=== PATIENT | male | born 1940 | race American Indian/Alaskan Native ===

== ENCOUNTER 2018-01-27 13:21 | Outpatient (CLI) | payer BC ==
--- NOTE | 2018-02-04 14:48 | Vascular Lab Report ---
CAROTID DUPLEX STUDY: RIGHT PSVEDV CCA PROX:[id number] CCA DIST:[id number] ICA PROX:[id number] ICA MID:[id number] ICA DIST:[id number] ECA: 1448 VERT: 63 14 LEFT PSVEDV CCA PROX:[id number] CCA DIST:[id number] ICA PROX:6714 ICA MID:8025 ICA DIST:8224 ECA: 1024 VERT: 59 10 REASON FOR EXAM: Carotid artery stenosis. COMMENTS ON THE RIGHT: Doppler frequency analysis is consistent with 16 to 49 percent diameter reduction of the internal carotid artery. A small amount of irregular surfaced plaque is seen. The common carotid artery is patent. The external carotid artery is patent. The vertebral artery has antegrade flow. COMMENTS ON THE LEFT: Doppler frequency analysis is consistent with 16 to 49 percent diameter reduction of the internal carotid artery. A small amount of plaque is seen. The common carotid artery is patent. The external carotid artery is patent. The vertebral artery has antegrade flow. IMPRESSION: Less than 50% diameter reduction in the internal carotid arteries bilaterally. Recommend repeat carotid artery deep flexion 12 months because of plaque in the right internal carotid artery.
== END 2018-01-27 13:22 | disposition home or self-care (01) ==
LOC: VAS 13:21
PROVIDERS: ATTEND Surgery Vascular Surgery
DX: I65.23 Occlusion and stenosis of bilateral carotid arteries (principal)
CPT/HCPCS: 93880

== ENCOUNTER 2018-01-30 08:17 | Outpatient (CLI) | payer BC, MEDICARE ==
--- NOTE | 2018-02-01 15:17 | Vascular Lab Report ---
LOWER EXTREMITY ARTERIAL DUPLEX: REASON FOR EXAM: Claudication. COMMENTS ON THE RIGHT: Triphasic waveforms are seen proximally. Triphasic waveforms are seen distally. 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 No significant plaque is identified. Findings are consistent with normal perfusion. Findings are consistent with the ability to heal distal wounds. COMMENTS ON THE LEFT: Triphasic waveforms are seen proximally. Triphasic waveforms are seen distally. Mild/moderate tibial artery occlusive disease is identified. No significant plaque is identified. Findings are consistent with normal perfusion. Findings are consistent with the ability to heal distal wounds. 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 However, flow is mostly preserved the distal lower extremity. LEFT:As on the right, tibial artery occlusive disease is identified but the patient has adequate flow to the distal lower extremity.
== END 2018-01-30 08:18 | disposition home or self-care (01) ==
LOC: VAS 08:17
PROVIDERS: ATTEND Surgery Vascular Surgery
DX: E11.42 Type 2 diabetes mellitus with diabetic polyneuropathy (principal); I70.213 Atherosclerosis of native arteries of extremities with intermittent claudication, bilateral legs; I65.23 Occlusion and stenosis of bilateral carotid arteries
CPT/HCPCS: 93922; 93925